=== PATIENT | male | born 1960 | race Caucasian/White ===

== ENCOUNTER 2018-03-29 22:07 | Inpatient (IN) | payer MEDICAID, OTHER ==
[~2018-03-29] VITALS: Ht 172.7 cm; Wt 89.4 kg
[2018-03-29] MEDS ORDERED: ONDANSETRON HCL 4MG/2ML VIAL IV STA (22:53)
[2018-03-29] MEDS ORDERED: DILTIAZEM HCL 5MG/ML 5ML VIAL IV ONE (23:00)
[2018-03-29 23:52] LABS: BASOPHILS % 0.7 % (0.0-2.0); EOSINOPHILS % 2.5 % (0.0-5.0); HEMATOCRIT. 45.3 % (42.0-52.0); HEMOGLOBIN. 15.5 g/dL (14.0-18.0); LYMPHOCYTES % 36.9 % (20.0-50.0); MEAN CORPUSCULAR HEMOGLOBIN 29.1 pg (28.0-32.0); MEAN CORPUSCULAR VOLUME 85.1 fL (80.0-94.0); MEAN PLATELET VOLUME 8.9 fl (7.4-10.4); NEUTROPHILS % 50.9 % (40.0-76.0); PLATELET 232 x1000/uL (130-400); RED BLOOD CELL COUNT 5.33 mill/uL (4.7-6.1); RED CELL DISTRIBUTION WIDTH 14.9 % (11.6-14.6)
[2018-03-29 23:57] LABS: CHLORIDE 105 mEq/L (98-107); PROTHROMBIN TIME 9.9 sec (9.1-11.1)
[2018-03-30 02:32] VITALS: BP 113/67
[2018-03-30] MEDS ORDERED: LISI-604 PO (02:32)
[2018-03-30] MEDS ORDERED: ASPI-1159 PO (02:32)
[2018-03-30 04:00] VITALS: BP 109/77
[2018-03-30] MEDS ORDERED: ONDANSETRON HCL 4MG/2ML VIAL IV PRN (04:45)
[2018-03-30] MEDS ORDERED: CLONIDINE 0.1MG TABLET PO PRN (04:45)
[2018-03-30] MEDS ORDERED: ACETAMINOPHEN 650MG/20.3ML UDC PO PRN (04:45)
[2018-03-30 08:00] VITALS: BP 113/72
[2018-03-30 11:06] LABS: LDL CHOLESTEROL 141 mg/dL (5-100)
[2018-03-30 11:09] LABS: HDL CHOLESTEROL 43 mg/dL (40-59)
[2018-03-30 11:11] LABS: CREATINE KINASE 113 IU/L (39-308); CREATINE KINASE MB FRACTION 1.1 ng/mL (0.5-3.6)
[2018-03-30] MEDS ORDERED: SOTALOL HCL 80MG TABLET PO NR (13:10)
[2018-03-30] MEDS: ASPIRIN 81MG EC TABLET PO SCH (13:31)
[2018-03-30 13:36] LABS: *AMPHETAMINES SCREEN URINE NEGATIVE (NEGATIVE); *BARBITURATES SCREEN URINE NEGATIVE (NEGATIVE); *BENZODIAZEPINES SCREEN URINE NEGATIVE (NEGATIVE); *COCAINE SCREEN URINE NEGATIVE (NEGATIVE); CANNABINOID URINE SCREEN NEGATIVE (NEGATIVE); PHENCYCLIDINE URINE SCREEN NEGATIVE (NEGATIVE)
[2018-03-30 13:37] LABS: METHADONE URINE SCREEN NEGATIVE (NEGATIVE); OPIATES URINE SCREEN NEGATIVE (NEGATIVE)
[2018-03-30 16:00] VITALS: BP 104/65
[2018-03-30 16:09] LABS: CREATINE KINASE MB FRACTION < 1.0 ng/mL (0.5-3.6)
[2018-03-30 16:15] LABS: CREATINE KINASE 96 IU/L (39-308)
[2018-03-30 20:00] VITALS: BP 109/73
[2018-03-30] MEDS: SOTALOL HCL 80MG TABLET PO SCH (20:18)
[2018-03-30] MEDS ORDERED: ATORVASTATIN CALCIUM 10MG TABLET PO SCH (21:00)
[2018-03-31] VITALS: BP 99/56
[2018-03-31 04:00] VITALS: BP 102/66
[2018-03-31 07:55] LABS: BASOPHILS % 0.4 % (0.0-2.0); EOSINOPHILS % 2.9 % (0.0-5.0); HEMATOCRIT. 42.4 % (42.0-52.0); HEMOGLOBIN. 14.3 g/dL (14.0-18.0); LYMPHOCYTES % 40.2 % (20.0-50.0); MEAN CORPUSCULAR HEMOGLOBIN 29.4 pg (28.0-32.0); MEAN CORPUSCULAR VOLUME 87.2 fL (80.0-94.0); MEAN PLATELET VOLUME 9.1 fl (7.4-10.4); MONOCYTES % 9.1 % (2.0-8.0); NEUTROPHILS % 47.4 % (40.0-76.0); PLATELET 218 x1000/uL (130-400); RED BLOOD CELL COUNT 4.86 mill/uL (4.7-6.1); RED CELL DISTRIBUTION WIDTH 15.1 % (11.6-14.6)
[2018-03-31 08:00] VITALS: BP 111/75
[2018-03-31 08:40] LABS: CHLORIDE 103 mEq/L (98-107)
[2018-03-31 08:45] LABS: PHOSPHORUS 3.8 mg/dL (2.5-4.9)
[2018-03-31] MEDS ORDERED: ENOXAPARIN 40MG/0.4ML SYR SUBCUT SCH (09:00)
[2018-03-31] MEDS: SOTALOL HCL 80MG TABLET PO SCH (09:00)
[2018-03-31] MEDS: ASPIRIN 81MG EC TABLET PO SCH (09:22)
[2018-03-31 12:00] VITALS: BP 111/70
[2018-03-31 16:00] VITALS: BP 116/84
[2018-03-31] MEDS ORDERED: ATOR10TA PO (16:32)
[2018-03-31] MEDS ORDERED: SOTA80TA25 PO (16:32)
[2018-03-31 17:00] VITALS: BP 116/84
== END 2018-03-31 17:15 | disposition home or self-care (01) | DRG 201 ==
LOC: ER 23:05 → 7WST 03-30 00:07 → EDBEDREQTM 03-30 00:11 → EDBEDREQ 03-30 00:11 → EDBEDREQDT 03-30 00:11 → ENRESERV 03-30 00:34
PROVIDERS: ADMIT Internal Medicine; ATTEND Internal Medicine
DX: I47.1 Supraventricular tachycardia (principal); I11.9 Hypertensive heart disease without heart failure; I48.0 Paroxysmal atrial fibrillation; E78.5 Hyperlipidemia, unspecified; F10.10 Alcohol abuse, uncomplicated; E78.1 Pure hyperglyceridemia; Z79.899 Other long term (current) drug therapy; Z71.41 Alcohol abuse counseling and surveillance of alcoholic
CPT/HCPCS: 36415; 71045; 80048; 80053; 80061; 80305; 82550; 82553; 83735; 83880; 84100; 84443; 84484; 85025; 85610; 93005; 93306; 93970; 99285; J1650; J2405; J3490